=== PATIENT | male | born 1945 | race Caucasian/White ===

== ENCOUNTER 2017-03-30 09:38 | Inpatient (IN) | payer MEDICARE, BC ==
[~2017-03-30] VITALS: Ht 172.7 cm; Wt 60.8 kg
[2017-03-30] MEDS ORDERED: AZAT50TA7 PO (10:13)
[2017-03-30] MEDS ORDERED: INFL100V IV (10:13)
[2017-03-30] MEDS ORDERED: DIAZ10TA PO (10:13)
[2017-03-30] MEDS ORDERED: PIPERACILLIN /TAZOBACTAM 3.375 G in IV D5W 50 ML IV ONE (10:30)
[2017-03-30] MEDS ORDERED: IV NS 0.9% 1,000 ML BAG IV ONE ×2 (10:30→16:00)
[2017-03-30] MEDS ORDERED: ONDANSETRON HCL/PF 4 MG/2 ML VIAL ONE (10:44)
[2017-03-30] MEDS ORDERED: MORPHINE SULFATE INJ 4 MG/ML DISP.SYRIN ONE (10:45)
[2017-03-30 10:58] LABS: HEMATOCRIT 36 % (39-51); HEMOGLOBIN 12.3 g/dL (13.5-17.5); LYMPHOCYTES # (AUTO) 0.1 /CMM (0.8-4.8); MEAN CORPUSCULAR HEMOGLOBIN 30 PG (26.0-33.0); MEAN CORPUSCULAR HGB CONC 34 g/dl (31.0-36.0); MEAN CORPUSCULAR VOLUME 88 fL (80-96); PLATELET COUNT (AUTO) 136 /CMM (150-450); RDW COEFFICIENT OF VARIATION 13.8 (11.5-15.0); RED BLOOD CELL COUNT(AUTO) 4.16 MIL/uL (4.5-6.0)
[2017-03-30] MEDS ORDERED: ONDANSETRON HCL/PF - ER 4 MG/2 ML VIAL IV ONE (11:00)
[2017-03-30] MEDS ORDERED: MORPHINE SULFATE INJ 2 MG/ML DISP.SYRIN IV ONE (11:00)
[2017-03-30 11:07] LABS: CALCIUM, SERUM 8.9 mg/dL (8.5-10.1); CARBON DIOXIDE 23 mmol/L (21-32); CHLORIDE 102 mmol/L (98-107); GLUCOSE 146 mg/dL (74-106); SODIUM SERUM 137 mmol/L (136-145); UREA NITROGEN, BLOOD 27 mg/dL (7-18)
[2017-03-30 11:10] LABS: EOSINOPHILS % (AUTO) 0.4 % (0.0-6.0); LYMPHOCYTES % (AUTO) 1.3 % (20.0-44.0); MONOCYTES # (AUTO) 1.9 /CMM (0.1-1.30); MONOCYTES % (AUTO) 1.9 % (2.0-12.0); NEUTROPHILS # (AUTO) 7.5 /CMM (1.8-8.9); NEUTROPHILS % (AUTO) 96.4 % (43.0-81.0)
[2017-03-30 11:12] LABS: ALANINE AMINOTRANSFERASE 40 U/L (12-78); ALBUMIN 3.4 g/dL (3.4-5.0); ALKALINE PHOSPHATASE 137 U/L (46-116); ASPARTATE AMINOTRANSFERASE 55 U/L (15-37); TOTAL PROTEIN, SERUM 7.2 g/dL (6.4-8.2)
[2017-03-30 11:14] LABS: TROPONIN I < 0.017 ng/mL (0.00-0.056)
[2017-03-30 11:16] LABS: INR 1.13 (0.87-1.13); PROTHROMBIN TIME 11.9 SECS (9.5-12.7)
[2017-03-30 11:34] LABS: BILIRUBIN,DIRECT 0.3 mg/dL (0.0-0.2); BILIRUBIN,TOTAL 2.9 mg/dL (0.2-1.0)
[2017-03-30] MEDS ORDERED: COLE1TAB PO (12:14)
[2017-03-30] MEDS ORDERED: INFLIXIMAB IV SCH (16:00)
[2017-03-30] MEDS ORDERED: ONDANSETRON HCL/PF 4 MG/2 ML VIAL IVP PRN (16:00)
[2017-03-30] MEDS ORDERED: VANCOMYCIN 1 GM in IV D5W 250 ML IV ONE (16:00)
[2017-03-30] MEDS: IV NS 0.9% 1,000 ML IV PRN (16:16)
[2017-03-30] MEDS ORDERED: FEE PK DOSING 1 MIN EA MC ONE (16:30)
[2017-03-30 16:39] LABS: ALBUMIN 2.6 g/dL (3.4-5.0); BILIRUBIN,DIRECT 0.4 mg/dL (0.0-0.2); BILIRUBIN,TOTAL 2.7 mg/dL (0.2-1.0); TOTAL PROTEIN, SERUM 6.4 g/dL (6.4-8.2)
[2017-03-30] MEDS: MORPHINE SULFATE INJ 2 MG/ML DISP.SYRIN IV PRN (16:53)
[2017-03-30] MEDS ORDERED: VANCOMYCIN 0.75 GM in IV D5W 250 ML IV SCH (17:00)
[2017-03-30 17:02] LABS: IRON, SERUM 10 ug/dl (50-175); TOTAL IRON BINDING CAPACITY 278 ug/dl (250-450)
[2017-03-30] MEDS: MEROPENEM 1 G in IV NS 0.9% 100 ML IV SCH (17:14)
[2017-03-30] MEDS: VANCOMYCIN 0.75 GM in IV D5W 250 ML IV SCH (18:22)
[2017-03-30 20:00] VITALS: BP 124/85
[2017-03-30] MEDS: ACETAMINOPHEN 650 MG/20.3 ML UDC NG PRN (23:42)
[2017-03-31] VITALS: BP 130/70
[2017-03-31 04:00] VITALS: BP 94/54
[2017-03-31] MEDS: MEROPENEM 1 G in IV NS 0.9% 100 ML IV SCH ×2 (04:51→16:09)
[2017-03-31 06:47] LABS: EOSINOPHILS % (AUTO) 0.2 % (0.0-6.0); HEMATOCRIT 32 % (39-51); HEMOGLOBIN 10.7 g/dL (13.5-17.5); LYMPHOCYTES # (AUTO) 0.2 /CMM (0.8-4.8); LYMPHOCYTES % (AUTO) 1.3 % (20.0-44.0); MEAN CORPUSCULAR HEMOGLOBIN 30 PG (26.0-33.0); MEAN CORPUSCULAR HGB CONC 34 g/dl (31.0-36.0); MEAN CORPUSCULAR VOLUME 88 fL (80-96); MONOCYTES # (AUTO) 0.3 /CMM (0.1-1.30); MONOCYTES % (AUTO) 1.9 % (2.0-12.0); NEUTROPHILS # (AUTO) 17.7 /CMM (1.8-8.9); NEUTROPHILS % (AUTO) 96.6 % (43.0-81.0); PLATELET COUNT (AUTO) 119 /CMM (150-450); RDW COEFFICIENT OF VARIATION 14.1 (11.5-15.0); RED BLOOD CELL COUNT(AUTO) 3.61 MIL/uL (4.5-6.0); WHITE BLOOD COUNT (AUTO) 18.3 K/uL (4.3-11.0)
[2017-03-31 06:51] LABS: INR 1.52 (0.87-1.13); PROTHROMBIN TIME 16.7 SECS (9.5-12.7)
[2017-03-31 07:44] LABS: ALBUMIN 2.3 g/dL (3.4-5.0); BILIRUBIN,TOTAL 2.8 mg/dL (0.2-1.0); CALCIUM, SERUM 7.6 mg/dL (8.5-10.1); CREATININE 2.2 mg/dL (0.6-1.3); POTASSIUM 5.1 mmol/L (3.5-5.1); TOTAL PROTEIN, SERUM 6.3 g/dL (6.4-8.2)
[2017-03-31 07:47] LABS: CREATINE KINASE MB 1.9 ng/mL (0-3.6)
[2017-03-31 08:00] VITALS: BP 116/68
[2017-03-31] MEDS: PANTOPRAZOLE 40 MG TABLET.DR PO SCH (08:17)
[2017-03-31] MEDS: AZATHIOPRINE 50 MG TABLET PO SCH (08:17)
[2017-03-31 10:02] LABS: BAND % (MANUAL) 3 % (0.0-5.0); LYMPHOCYTES % (MANUAL) 10 % (16-48); MONOCYTES % (MANUAL) 1 % (0-11.0); NEUTROPHILS % (MANUAL) 86 (42-76)
[2017-03-31] MEDS: IV NS 0.9% 1,000 ML IV PRN (11:22)
[2017-03-31] MEDS: VANCOMYCIN 0.75 GM in IV D5W 250 ML IV SCH (11:23)
[2017-03-31 12:00] VITALS: BP 123/72
[2017-03-31 16:00] VITALS: BP 131/75
[2017-03-31 20:00] VITALS: BP 124/69
[2017-03-31 22:50] LABS: CREATININE, URINE 130.7 MG/DL (30.0-125.0); URINE TOTAL PROTEIN 159.5 mg/dL (0-11.9)
[2017-03-31 22:56] LABS: APPEARANCE,URINE SL CLOUDY (CLEAR); BILIRUBIN,URINE NEGATIVE (NEGATIVE); BLOOD, URINE 3+ Ery/uL (NEGATIVE); COLOR,URINE YELLOW (YELLOW); KETONES,URINE NEGATIVE (NEGATIVE); LEUKOCYTE ESTERASE ,URINE 1+ (NEGATIVE); NITRITE, URINE NEGATIVE (NEGATIVE); PROTEIN,URINE 2+ mg/dl (NEGATIVE); UGLUCOSE NEGATIVE (NEGATIVE); UROBILINOGEN,URINE 0.2 EU/dL (0.2)
[2017-03-31 23:08] LABS: BACTERIA,URINE 2+ /HPF (None Seen); SQUAMOUS EPITHELIAL CELL,UR Few /HPF (None Seen); URINE AMORPHOUS URATE Moderate /HPF (None Seen); WBC,URINE 21-50 /HPF (0-3)
[2017-04-01] VITALS: BP 96/54
[2017-04-01] MEDS: MORPHINE SULFATE INJ 2 MG/ML DISP.SYRIN IV PRN (03:11)
[2017-04-01] MEDS: IV NS 0.9% 1,000 ML IV PRN (03:56)
[2017-04-01 04:00] VITALS: BP 119/74
[2017-04-01] MEDS: MEROPENEM 1 G in IV NS 0.9% 100 ML IV SCH ×2 (04:34→16:13)
[2017-04-01] MEDS: VANCOMYCIN 0.75 GM in IV D5W 250 ML IV SCH (06:01)
[2017-04-01 08:00] VITALS: BP 121/73
[2017-04-01] MEDS: AZATHIOPRINE 50 MG TABLET PO SCH (08:01)
[2017-04-01] MEDS: PANTOPRAZOLE 40 MG TABLET.DR PO SCH (08:01)
[2017-04-01 08:43] LABS: CALCIUM, SERUM 7.1 mg/dL (8.5-10.1); CREATININE 1.5 mg/dL (0.6-1.3); POTASSIUM 3.3 mmol/L (3.5-5.1)
[2017-04-01] MEDS ORDERED: POTASSIUM CHLORIDE 20 MEQ TAB.PRT.SR PO SCH (11:30)
[2017-04-01 12:00] VITALS: BP 118/75
[2017-04-01] MEDS: DIAZEPAM 10 MG TABLET PO PRN (12:14)
[2017-04-01 16:00] VITALS: BP 141/71
[2017-04-01 17:31] LABS: BASOPHILS % (AUTO) 0.1 % (0.0-2.0); EOSINOPHILS % (AUTO) 0.2 % (0.0-6.0); HEMATOCRIT 28 % (39-51); HEMOGLOBIN 9.4 g/dL (13.5-17.5); LYMPHOCYTES # (AUTO) 0.5 /CMM (0.8-4.8); LYMPHOCYTES % (AUTO) 2.5 % (20.0-44.0); MEAN CORPUSCULAR HEMOGLOBIN 29 PG (26.0-33.0); MEAN CORPUSCULAR HGB CONC 33 g/dl (31.0-36.0); MEAN CORPUSCULAR VOLUME 87 fL (80-96); MONOCYTES # (AUTO) 0.8 /CMM (0.1-1.30); NEUTROPHILS # (AUTO) 18.5 /CMM (1.8-8.9); NEUTROPHILS % (AUTO) 93.2 % (43.0-81.0); PLATELET COUNT (AUTO) 134 /CMM (150-450); RDW COEFFICIENT OF VARIATION 14.1 (11.5-15.0); RED BLOOD CELL COUNT(AUTO) 3.26 MIL/uL (4.5-6.0); WHITE BLOOD COUNT (AUTO) 19.9 K/uL (4.3-11.0)
[2017-04-01 17:57] LABS: BAND % (MANUAL) 7 % (0.0-5.0); LYMPHOCYTES % (MANUAL) 3 % (16-48); MONOCYTES % (MANUAL) 2 % (0-11.0); NEUTROPHILS % (MANUAL) 88 (42-76)
[2017-04-01 20:15] VITALS: BP 120/67
[2017-04-02] VITALS (8 sets, daily range): BP systolic 104–135; BP diastolic 60–75
[2017-04-02] MEDS: VANCOMYCIN 0.75 GM in IV D5W 250 ML IV SCH ×2 (00:27→14:10)
[2017-04-02] MEDS: IV NS 0.9% 1,000 ML IV PRN (00:28)
[2017-04-02] MEDS: MEROPENEM 1 G in IV NS 0.9% 100 ML IV SCH ×2 (05:20→17:15)
[2017-04-02 07:16] LABS: EOSINOPHILS # (AUTO) 0.2 /CMM (0.0-0.7); EOSINOPHILS % (AUTO) 1.2 % (0.0-6.0); HEMATOCRIT 29 % (39-51); HEMOGLOBIN 9.7 g/dL (13.5-17.5); LYMPHOCYTES # (AUTO) 0.6 /CMM (0.8-4.8); LYMPHOCYTES % (AUTO) 3.3 % (20.0-44.0); MEAN CORPUSCULAR HEMOGLOBIN 30 PG (26.0-33.0); MEAN CORPUSCULAR HGB CONC 34 g/dl (31.0-36.0); MEAN CORPUSCULAR VOLUME 87 fL (80-96); MONOCYTES # (AUTO) 0.4 /CMM (0.1-1.30); MONOCYTES % (AUTO) 2.3 % (2.0-12.0); NEUTROPHILS # (AUTO) 16.3 /CMM (1.8-8.9); NEUTROPHILS % (AUTO) 93.2 % (43.0-81.0); PLATELET COUNT (AUTO) 137 /CMM (150-450); RDW COEFFICIENT OF VARIATION 14.3 (11.5-15.0); RED BLOOD CELL COUNT(AUTO) 3.28 MIL/uL (4.5-6.0); WHITE BLOOD COUNT (AUTO) 17.4 K/uL (4.3-11.0)
[2017-04-02 07:46] LABS: ALBUMIN 1.9 g/dL (3.4-5.0); BILIRUBIN,TOTAL 1.4 mg/dL (0.2-1.0); CALCIUM, SERUM 7.5 mg/dL (8.5-10.1); CREATININE 1.2 mg/dL (0.6-1.3); MAGNESIUM 1.6 mg/dL (1.8-2.4); PHOSPHORUS 1.5 mg/dL (2.5-4.9); POTASSIUM 3.2 mmol/L (3.5-5.1)
[2017-04-02] MEDS: AZATHIOPRINE 50 MG TABLET PO SCH (08:02)
[2017-04-02] MEDS: PANTOPRAZOLE 40 MG TABLET.DR PO SCH (08:02)
[2017-04-02 08:28] LABS: BAND % (MANUAL) 4 % (0.0-5.0); EOSINOPHILS % (MANUAL) 1 % (0-4); LYMPHOCYTES % (MANUAL) 5 % (16-48); MONOCYTES % (MANUAL) 3 % (0-11.0); NEUTROPHILS % (MANUAL) 87 (42-76)
[2017-04-02] MEDS ORDERED: POTASSIUM PHOSPHATE MM 15 MMOL in IV D5W 250 ML IV SCH (11:30)
[2017-04-02] MEDS ORDERED: Magnesium 1GM/D5W 100ML PREMIX 100 ML IV SCH (11:30)
[2017-04-02] MEDS: Magnesium 1GM/D5W 100ML PREMIX 100 ML IV SCH ×2 (11:36→13:01)
[2017-04-02] MEDS: POTASSIUM PHOSPHATE MM 7.5 MMOL in IV D5W 100 ML IV SCH ×2 (12:34→15:49)
[2017-04-02] MEDS: NEOMY SULF/BACITRAC ZN/POLY 15 GM TUBE TP SCH (14:53)
[2017-04-02 18:34] LABS: FREE PSA 3.39 ng/mL (0.00-45); PROSTATE SPECIFIC ANTIGEN SCR 40.76 ng/mL (0.00-4.00)
[2017-04-03] VITALS: BP 142/78
[2017-04-03] MEDS: VANCOMYCIN 0.75 GM in IV D5W 250 ML IV SCH ×2 (00:20→12:15)
[2017-04-03 04:00] VITALS: BP 126/71
[2017-04-03] MEDS: MEROPENEM 1 G in IV NS 0.9% 100 ML IV SCH ×2 (04:11→17:10)
[2017-04-03] MEDS: IV NS 0.9% 1,000 ML IV PRN (04:22)
[2017-04-03 07:36] LABS: BASOPHILS % (AUTO) 0.2 % (0.0-2.0); EOSINOPHILS # (AUTO) 0.5 /CMM (0.0-0.7); EOSINOPHILS % (AUTO) 4.5 % (0.0-6.0); HEMATOCRIT 27 % (39-51); HEMOGLOBIN 9.2 g/dL (13.5-17.5); LYMPHOCYTES # (AUTO) 0.8 /CMM (0.8-4.8); LYMPHOCYTES % (AUTO) 6.9 % (20.0-44.0); MEAN CORPUSCULAR HEMOGLOBIN 29 PG (26.0-33.0); MEAN CORPUSCULAR HGB CONC 34 g/dl (31.0-36.0); MEAN CORPUSCULAR VOLUME 86 fL (80-96); MONOCYTES # (AUTO) 0.6 /CMM (0.1-1.30); MONOCYTES % (AUTO) 5.3 % (2.0-12.0); NEUTROPHILS # (AUTO) 9.5 /CMM (1.8-8.9); NEUTROPHILS % (AUTO) 83.1 % (43.0-81.0); PLATELET COUNT (AUTO) 151 /CMM (150-450); RED BLOOD CELL COUNT(AUTO) 3.15 MIL/uL (4.5-6.0); WHITE BLOOD COUNT (AUTO) 11.5 K/uL (4.3-11.0)
[2017-04-03 07:55] LABS: CALCIUM, SERUM 7.1 mg/dL (8.5-10.1); CREATININE 1.1 mg/dL (0.6-1.3); PHOSPHORUS 1.6 mg/dL (2.5-4.9); POTASSIUM 3.1 mmol/L (3.5-5.1)
[2017-04-03 08:00] VITALS: BP 143/92
[2017-04-03] MEDS: PANTOPRAZOLE 40 MG TABLET.DR PO SCH (08:14)
[2017-04-03] MEDS: AZATHIOPRINE 50 MG TABLET PO SCH (08:16)
[2017-04-03] MEDS: NEOMY SULF/BACITRAC ZN/POLY 15 GM TUBE TP SCH (08:19)
[2017-04-03] MEDS ORDERED: Potassium Chloride 10 MEQ, LIDOCAINE HCL/PF 1% 1 ML in IV D5W 50 ML IV SCH ×6 (10:00)
[2017-04-03] MEDS ORDERED: POTASSIUM PHOSPHATE MM 15 MMOL in IV D5W 250 ML IV SCH (10:00)
[2017-04-03] MEDS: Magnesium 1GM/D5W 100ML PREMIX 100 ML IV SCH ×2 (10:20→11:49)
[2017-04-03] MEDS: Potassium Chloride 10 MEQ, LIDOCAINE HCL/PF 1% 1 ML in IV D5W 50 ML IV SCH ×2 (10:49→13:17)
[2017-04-03 12:00] VITALS: BP 119/71
[2017-04-03] MEDS: POTASSIUM PHOSPHATE MM 7.5 MMOL in IV D5W 100 ML IV SCH ×2 (15:51→17:21)
[2017-04-03 16:00] VITALS: BP 121/73
[2017-04-03] MEDS: FINASTERIDE (5 MG) 5 MG TABLET PO SCH (17:57)
[2017-04-03 20:00] VITALS: BP 130/69
[2017-04-03] MEDS: VANCOMYCIN 1 GM in IV D5W 250 ML IV SCH (23:48)
[2017-04-04] VITALS (7 sets, daily range): BP systolic 126–149; BP diastolic 68–83
[2017-04-04] MEDS ORDERED: MEROPENEM 1 G VIAL IV ONE (04:55)
[2017-04-04] MEDS: MEROPENEM 1 G in IV NS 0.9% 100 ML IV SCH ×2 (05:03→18:07)
[2017-04-04 06:54] LABS: BASOPHILS % (AUTO) 0.2 % (0.0-2.0); EOSINOPHILS # (AUTO) 0.5 /CMM (0.0-0.7); EOSINOPHILS % (AUTO) 5.1 % (0.0-6.0); HEMATOCRIT 31 % (39-51); HEMOGLOBIN 10.1 g/dL (13.5-17.5); LYMPHOCYTES # (AUTO) 1.4 /CMM (0.8-4.8); LYMPHOCYTES % (AUTO) 14.7 % (20.0-44.0); MEAN CORPUSCULAR HEMOGLOBIN 29 PG (26.0-33.0); MEAN CORPUSCULAR HGB CONC 33 g/dl (31.0-36.0); MEAN CORPUSCULAR VOLUME 87 fL (80-96); MONOCYTES # (AUTO) 0.4 /CMM (0.1-1.30); MONOCYTES % (AUTO) 4.6 % (2.0-12.0); NEUTROPHILS # (AUTO) 7.1 /CMM (1.8-8.9); NEUTROPHILS % (AUTO) 75.4 % (43.0-81.0); PLATELET COUNT (AUTO) 210 /CMM (150-450); RDW COEFFICIENT OF VARIATION 14.3 (11.5-15.0); WHITE BLOOD COUNT (AUTO) 9.4 K/uL (4.3-11.0)
[2017-04-04 07:07] LABS: INR 2.78 (0.87-1.13); PROTHROMBIN TIME 31.7 SECS (9.5-12.7)
[2017-04-04 07:24] LABS: CALCIUM, SERUM 7.7 mg/dL (8.5-10.1); PHOSPHORUS 2.2 mg/dL (2.5-4.9); POTASSIUM 3.3 mmol/L (3.5-5.1)
[2017-04-04] MEDS: FINASTERIDE (5 MG) 5 MG TABLET PO SCH (08:32)
[2017-04-04] MEDS: PANTOPRAZOLE 40 MG TABLET.DR PO SCH (08:33)
[2017-04-04] MEDS: AZATHIOPRINE 50 MG TABLET PO SCH (08:34)
[2017-04-04] MEDS: NEOMY SULF/BACITRAC ZN/POLY 15 GM TUBE TP SCH (08:36)
[2017-04-04] MEDS: DIAZEPAM 10 MG TABLET PO PRN (10:02)
[2017-04-04] MEDS: POTASSIUM CL. PREMIX PERIPHER. 50 ML IV SCH ×2 (11:28→13:56)
[2017-04-04] MEDS: IV NS 0.9% 1,000 ML IV PRN (11:33)
[2017-04-04] MEDS: VANCOMYCIN 1 GM in IV D5W 250 ML IV SCH ×2 (12:46→23:58)
[2017-04-04] MEDS: POTASSIUM PHOSPHATE MM 7.5 MMOL in IV D5W 100 ML IV SCH ×2 (15:00→19:32)
[2017-04-05] VITALS (10 sets, daily range): BP systolic 126–152; BP diastolic 70–92
[2017-04-05] MEDS: MEROPENEM 1 G in IV NS 0.9% 100 ML IV SCH ×2 (04:46→18:05)
[2017-04-05] MEDS: IV NS 0.9% 1,000 ML IV PRN ×2 (05:06→22:16)
[2017-04-05] MEDS: PANTOPRAZOLE 40 MG TABLET.DR PO SCH (07:30)
[2017-04-05 08:13] LABS: BASOPHILS # (AUTO) 0.1 /CMM (0.0-0.2); BASOPHILS % (AUTO) 0.7 % (0.0-2.0); EOSINOPHILS # (AUTO) 0.5 /CMM (0.0-0.7); EOSINOPHILS % (AUTO) 3.6 % (0.0-6.0); HEMATOCRIT 34 % (39-51); HEMOGLOBIN 11.2 g/dL (13.5-17.5); LYMPHOCYTES # (AUTO) 2.1 /CMM (0.8-4.8); LYMPHOCYTES % (AUTO) 15.4 % (20.0-44.0); MEAN CORPUSCULAR HEMOGLOBIN 29 PG (26.0-33.0); MEAN CORPUSCULAR HGB CONC 33 g/dl (31.0-36.0); MEAN CORPUSCULAR VOLUME 87 fL (80-96); MONOCYTES # (AUTO) 0.2 /CMM (0.1-1.30); MONOCYTES % (AUTO) 1.6 % (2.0-12.0); NEUTROPHILS # (AUTO) 10.7 /CMM (1.8-8.9); NEUTROPHILS % (AUTO) 78.7 % (43.0-81.0); PLATELET COUNT (AUTO) 295 /CMM (150-450); RDW COEFFICIENT OF VARIATION 14.1 (11.5-15.0); RED BLOOD CELL COUNT(AUTO) 3.93 MIL/uL (4.5-6.0); WHITE BLOOD COUNT (AUTO) 13.5 K/uL (4.3-11.0)
[2017-04-05 08:27] LABS: CREATININE 1.1 mg/dL (0.6-1.3); MAGNESIUM 1.9 mg/dL (1.8-2.4); PHOSPHORUS 2.3 mg/dL (2.5-4.9); POTASSIUM 3.3 mmol/L (3.5-5.1)
[2017-04-05] MEDS: AZATHIOPRINE 50 MG TABLET PO SCH ×2 (08:29→10:11)
[2017-04-05] MEDS: FINASTERIDE (5 MG) 5 MG TABLET PO SCH ×2 (08:29→10:12)
[2017-04-05] MEDS: NEOMY SULF/BACITRAC ZN/POLY 15 GM TUBE TP SCH ×2 (08:30→10:13)
[2017-04-05] MEDS ORDERED: LIDOCAINE 0.5% HCL 50 ML VIAL ONE (09:07)
[2017-04-05] MEDS ORDERED: BUPIVACAINE MPF 0.5% W/EPI INJ 30 ML VIAL ONE (09:07)
[2017-04-05 09:13] LABS: INR 3.52 (0.87-1.13); PROTHROMBIN TIME 40.8 SECS (9.5-12.7)
[2017-04-05] MEDS: ACETAMINOPHEN 650 MG/20.3 ML UDC NG PRN (11:14)
[2017-04-05] MEDS: VANCOMYCIN 1 GM in IV D5W 250 ML IV SCH (11:50)
[2017-04-05] MEDS ORDERED: PHYTONADIONE INJ 10 MG/1 ML AMPUL SQ ONE (14:30)
[2017-04-05] MEDS: POTASSIUM CL. PREMIX PERIPHER. 50 ML IV SCH ×2 (14:53→16:21)
[2017-04-05 15:32] LABS: PLATELET COUNT (AUTO) 288 /CMM (150-450)
[2017-04-05] MEDS ORDERED: K PHOS NEUTRAL 250 MG TABLET PO ONE (16:00)
[2017-04-05 16:09] LABS: PROTHROMBIN TIME 47.2 SECS (9.5-12.7)
[2017-04-05 16:13] LABS: D-DIMER 2.35 mg/L(FEU (0.17-0.50); FIBRINOGEN ACTIVITY 583 Mg/dL (213-485); INR 4.04 (0.87-1.13); PARTIAL THROMBOPLASTIN TIME 49 SEC (23-34)
[2017-04-06] VITALS (7 sets, daily range): BP systolic 124–151; BP diastolic 72–90
[2017-04-06] MEDS: VANCOMYCIN 1 GM in IV D5W 250 ML IV SCH ×2 (01:01→11:34)
[2017-04-06] MEDS ORDERED: diphenhydrAMINE HCL 50 MG/ML VIAL ONE (01:14)
[2017-04-06] MEDS ORDERED: diphenhydrAMINE HCL 50 MG/ML VIAL IV ONE (01:30)
[2017-04-06] MEDS: MEROPENEM 1 G in IV NS 0.9% 100 ML IV SCH (04:34)
[2017-04-06 06:51] LABS: INR 1.11 (0.87-1.13); PROTHROMBIN TIME 11.9 SECS (9.5-12.7)
[2017-04-06 06:52] LABS: CALCIUM, SERUM 7.8 mg/dL (8.5-10.1); CREATININE 1.1 mg/dL (0.6-1.3); PHOSPHORUS 3.1 mg/dL (2.5-4.9); POTASSIUM 3.2 mmol/L (3.5-5.1)
[2017-04-06] MEDS: AZATHIOPRINE 50 MG TABLET PO SCH (08:00)
[2017-04-06] MEDS: PANTOPRAZOLE 40 MG TABLET.DR PO SCH (08:01)
[2017-04-06] MEDS: FINASTERIDE (5 MG) 5 MG TABLET PO SCH (08:01)
[2017-04-06] MEDS: NEOMY SULF/BACITRAC ZN/POLY 15 GM TUBE TP SCH (08:04)
[2017-04-06] MEDS ORDERED: POTASSIUM CHLORIDE 20 MEQ TAB.PRT.SR PO SCH (11:00)
[2017-04-06] MEDS ORDERED: ERTA1VIA2 IV (11:18)
[2017-04-06] MEDS ORDERED: VANC1PLA10 IV (11:18)
[2017-04-06] MEDS ORDERED: Potassium Chloride 10 MEQ, LIDOCAINE HCL/PF 1% 1 ML in IV D5W 50 ML IV SCH ×6 (11:30)
[2017-04-06] MEDS: MORPHINE SULFATE INJ 2 MG/ML DISP.SYRIN IV PRN (11:43)
== END 2017-04-06 15:32 | disposition home health service (06) | DRG 871 ==
LOC: ER 09:40 → MEDSG1 13:29 → TELE1 16:36 → MEDSG1 04-06 11:17
PROVIDERS: ADMIT Internal Medicine; ATTEND Internal Medicine
PROC: 05H633Z Insertion of Infusion Device into Left Subclavian Vein, Percutaneous Approach (ICD-10-PCS; principal; 2017-03-30)
PROC: 30233K1 Transfusion of Nonautologous Frozen Plasma into Peripheral Vein, Percutaneous Approach (ICD-10-PCS; 2017-03-30)
DX: A41.9 Sepsis, unspecified organism (principal); N17.0 Acute kidney failure with tubular necrosis; E87.2 Acidosis; E44.0 Moderate protein-calorie malnutrition; D68.9 Coagulation defect, unspecified; E87.8 Other disorders of electrolyte and fluid balance, not elsewhere classified; K50.90 Crohn's disease, unspecified, without complications; K56.7 Ileus, unspecified; L03.113 Cellulitis of right upper limb; N39.0 Urinary tract infection, site not specified; Z82.49 Family history of ischemic heart disease and other diseases of the circulatory system; D50.9 Iron deficiency anemia, unspecified; K80.20 Calculus of gallbladder without cholecystitis without obstruction; N18.9 Chronic kidney disease, unspecified; B96.89 Other specified bacterial agents as the cause of diseases classified elsewhere
CPT/HCPCS: 36415; 71010-TC; 71250-TC; 76770-TC; 80048-TC; 80053-TC; 80076-TC; 80202-TC; 81000-TC; 82553-TC; 82570-TC; 83540-TC; 83605-TC; 83735-TC; 84100-TC; 84153-TC; 84154-TC; 84155-TC; 84300-TC; 84484-TC; 85025-TC; 85396; 85610-TC; 85730-TC; 86850-TC; 87040-TC; 87081-TC; 87086-TC; 93307-TC; 93971-TC; A4606; A6402; A6403; J1200; J2185; J2270; J2405; J2543; J3370; J3430; J3475; J3480; J3490; J7030; J7050; J7060; J7500; P9017-BL; Z7610

== ENCOUNTER 2017-04-08 13:41 | Outpatient (CLI) | payer MEDICARE, BC ==
[~2017-04-08 13:41] MED LIST: AZAT50TA7 PO; COLE1TAB PO; DIAZ10TA PO; ERTA1VIA2 IV; INFL100V IV; VANC1PLA10 IV
== END 2017-04-08 23:59 | disposition home health service (06) ==
LOC: WOU 13:41
PROVIDERS: ATTEND Surgery
DX: I96 Gangrene, not elsewhere classified (principal); S51.801A Unspecified open wound of right forearm, initial encounter; L03.113 Cellulitis of right upper limb; X58.XXXA Exposure to other specified factors, initial encounter; Y92.89 Other specified places as the place of occurrence of the external cause; K50.90 Crohn's disease, unspecified, without complications; Z79.899 Other long term (current) drug therapy
CPT/HCPCS: 11043; 11046; A6402

== ENCOUNTER 2017-04-12 12:35 | Outpatient (CLI) | payer MEDICARE, BC ==
[~2017-04-12 12:35] MED LIST changes: +PIPERACILLIN /TAZOBACTAM 3.375 G VIAL IV ONE
== END 2017-04-12 23:59 | disposition home health service (06) ==
LOC: WOU 12:35
PROVIDERS: ATTEND Surgery
DX: S51.811A Laceration without foreign body of right forearm, initial encounter (principal); L03.113 Cellulitis of right upper limb; K50.00 Crohn's disease of small intestine without complications; D84.9 Immunodeficiency, unspecified; Z79.899 Other long term (current) drug therapy
CPT/HCPCS: 11042; 11045; A6253; A6402; J2543

== ENCOUNTER 2017-04-14 20:56 | Emergency (ER) | payer MEDICARE, BC ==
[~2017-04-14] VITALS: Ht 172.7 cm; Wt 66.7 kg
[~2017-04-14 20:56] MED LIST changes: -PIPERACILLIN /TAZOBACTAM 3.375 G VIAL IV ONE
[2017-04-14 21:08] VITALS: BP 132/78
--- NOTE | 2017-04-14 21:51 | NUR ---
PAC ABNER ORDERED REPLACE FC LEG BAG COMPLITED, TOLERATED WELL
--- NOTE | 2017-04-14 21:56 | NUR ---
PT LEFT WITHOUT D/C INSTRUCTIONS. AWARE. PT HAS F/C INTACT WITH NEW LEG BAG. PT STABLE.
== END 2017-04-14 22:03 | disposition left against medical advice (07) ==
LOC: ER 20:57
DX: T83.011A Breakdown (mechanical) of indwelling urethral catheter, initial encounter (principal)
CPT/HCPCS: 99284; A4606; Z7610

== ENCOUNTER 2017-04-19 12:56 | Outpatient (CLI) | payer MEDICARE, BC | END 2017-04-19 23:59 | disposition home health service (06) | LOC: WOU 12:56 | PROVIDERS: ATTEND Surgery | DX: S51.801A Unspecified open wound of right forearm, initial encounter (principal); L03.113 Cellulitis of right upper limb; X58.XXXA Exposure to other specified factors, initial encounter; K50.00 Crohn's disease of small intestine without complications; D84.9 Immunodeficiency, unspecified; Z79.899 Other long term (current) drug therapy | CPT/HCPCS: 11042; 11045; A6253; A6402 ==

== ENCOUNTER 2017-04-29 13:22 | Outpatient (CLI) | payer MEDICARE, BC | END 2017-04-29 23:59 | disposition home health service (06) | LOC: WOU 13:22 | PROVIDERS: ATTEND Surgery | DX: S51.801A Unspecified open wound of right forearm, initial encounter (principal); L03.113 Cellulitis of right upper limb; X58.XXXS Exposure to other specified factors, sequela; K50.00 Crohn's disease of small intestine without complications; D84.9 Immunodeficiency, unspecified; Z79.899 Other long term (current) drug therapy; Z83.3 Family history of diabetes mellitus | CPT/HCPCS: 11042; 11045; A6253; A6402 ==

== ENCOUNTER 2017-05-06 13:40 | Outpatient (CLI) | payer MEDICARE, BC | END 2017-05-06 23:59 | disposition home health service (06) | LOC: WOU 13:40 | PROVIDERS: ATTEND Surgery | DX: S51.801A Unspecified open wound of right forearm, initial encounter (principal); I96 Gangrene, not elsewhere classified; K50.00 Crohn's disease of small intestine without complications; D84.9 Immunodeficiency, unspecified; Z79.899 Other long term (current) drug therapy; Z83.3 Family history of diabetes mellitus | CPT/HCPCS: 11042; 11045; A6402 ==

== ENCOUNTER 2017-05-20 13:15 | Outpatient (CLI) | payer MEDICARE, BC | END 2017-05-20 23:59 | disposition home or self-care (01) | LOC: WOU 13:15 | PROVIDERS: ATTEND Surgery | DX: Z48.817 Encounter for surgical aftercare following surgery on the skin and subcutaneous tissue (principal); I96 Gangrene, not elsewhere classified; K50.90 Crohn's disease, unspecified, without complications; Z79.899 Other long term (current) drug therapy | CPT/HCPCS: 11042; 11045; A6402 ==

== ENCOUNTER 2017-05-31 14:02 | Outpatient (CLI) | payer MEDICARE, BC | END 2017-05-31 23:59 | disposition home health service (06) | LOC: WOU 14:02 | PROVIDERS: ATTEND Surgery | DX: Z09 Encounter for follow-up examination after completed treatment for conditions other than malignant neoplasm (principal); K50.90 Crohn's disease, unspecified, without complications; Z79.899 Other long term (current) drug therapy | CPT/HCPCS: G0463 ==

== ENCOUNTER 2017-07-12 13:02 | Outpatient (CLI) | payer MEDICARE, BC | END 2017-07-12 23:59 | disposition home or self-care (01) | LOC: WOU 13:02 | PROVIDERS: ATTEND Surgery | DX: L90.5 Scar conditions and fibrosis of skin (principal); K50.90 Crohn's disease, unspecified, without complications; Z79.899 Other long term (current) drug therapy | CPT/HCPCS: G0463 ==

== ENCOUNTER 2017-09-06 10:32 | Outpatient (CLI) | payer MEDICARE, BC ==
[~2017-09-06 10:32] MED LIST changes: +AZAT50TA18 PO; -AZAT50TA7 PO
== END 2017-09-06 23:59 | disposition home or self-care (01) ==
LOC: WOU 10:32
PROVIDERS: ATTEND Surgery
DX: L90.5 Scar conditions and fibrosis of skin (principal); S51.811S Laceration without foreign body of right forearm, sequela; X58.XXXS Exposure to other specified factors, sequela; L85.3 Xerosis cutis; R23.4 Changes in skin texture; Z79.899 Other long term (current) drug therapy
CPT/HCPCS: G0463

== ENCOUNTER 2017-11-08 12:30 | Outpatient (CLI) | payer MEDICARE, BC | END 2017-11-08 23:59 | disposition home or self-care (01) | LOC: WOU 12:30 | PROVIDERS: ATTEND Surgery | DX: Z09 Encounter for follow-up examination after completed treatment for conditions other than malignant neoplasm (principal); L90.5 Scar conditions and fibrosis of skin; R23.4 Changes in skin texture; L85.3 Xerosis cutis; K50.90 Crohn's disease, unspecified, without complications; Z79.899 Other long term (current) drug therapy | CPT/HCPCS: G0463 ==

== ENCOUNTER 2019-08-17 12:00 | Outpatient (CLI) | payer MEDICARE, BC | END 2019-08-17 23:59 | disposition home or self-care (01) | LOC: WOU 12:00 | PROVIDERS: ATTEND Surgery | DX: C43.39 Malignant melanoma of other parts of face (principal); K50.90 Crohn's disease, unspecified, without complications; Z79.899 Other long term (current) drug therapy; Z83.3 Family history of diabetes mellitus | CPT/HCPCS: G0463 ==

== ENCOUNTER 2019-08-22 09:43 | Outpatient (CLI) | payer MEDICARE, BC ==
[2019-08-22 10:59] LABS: BASOPHILS # (AUTO) 0.1 /CMM (0.0-0.2); BASOPHILS % (AUTO) 0.9 % (0.0-2.0); EOSINOPHILS % (AUTO) 1.1 % (0.0-6.0); HEMATOCRIT 35 % (39-51); HEMOGLOBIN 11.6 g/dL (13.5-17.5); LYMPHOCYTES % (AUTO) 18.3 % (20.0-44.0); MEAN CORPUSCULAR HGB CONC 33 g/dl (31.0-36.0); MEAN CORPUSCULAR VOLUME 93 fL (80-96); MONOCYTES # (AUTO) 0.4 /CMM (0.1-1.30); MONOCYTES % (AUTO) 7.4 % (2.0-12.0); NEUTROPHILS % (AUTO) 72.3 % (43.0-81.0); PLATELET COUNT (AUTO) 148 /CMM (150-450); RED BLOOD CELL COUNT(AUTO) 3.75 MIL/uL (4.5-6.0); WHITE BLOOD COUNT (AUTO) 5.5 K/uL (4.3-11.0)
[2019-08-22 11:03] LABS: CALCIUM, SERUM 8.7 mg/dL (8.5-10.1); CREATININE 1.1 mg/dL (0.6-1.3); POTASSIUM 4.4 mmol/L (3.5-5.1)
== END 2019-08-22 23:59 | disposition home or self-care (01) ==
LOC: LAB 09:43
PROVIDERS: ATTEND Surgery
DX: Z01.818 Encounter for other preprocedural examination (principal); C43.39 Malignant melanoma of other parts of face; K50.90 Crohn's disease, unspecified, without complications
CPT/HCPCS: 36415; 71045-TC; 80048-TC; 85025-TC; 85610-TC; 85730-TC

== ENCOUNTER 2019-09-04 06:49 | Day surgery (SDC) | payer MEDICARE, BC ==
[2019-09-04] MEDS ORDERED: ANESTHESIA TRAY IN PYXIS 1 EA TRAY MC ONE (07:21)
[2019-09-04] MEDS ORDERED: LIDOCAINE MPF 1%-EPI 1:200,000 30 ML VIAL IJ ONE (07:22)
[2019-09-04] MEDS ORDERED: BUPIVACAINE 0.5 % PF 150 MG/30 ML VIAL ONE (08:12)
[2019-09-04] MEDS ORDERED: BACITRACIN ZINC OINT (15 GM) 15 GM TUBE TP ONE (08:33)
[2019-09-04] MEDS ORDERED: HYDROMORPHONE 1 MG/1 ML DISP.SYRIN ONE (09:10)
== END 2019-09-04 11:40 | disposition home or self-care (01) ==
LOC: DS 06:49
PROVIDERS: ATTEND Surgery
DX: D23.39 Other benign neoplasm of skin of other parts of face (principal); Z88.2 Allergy status to sulfonamides; D64.9 Anemia, unspecified; F41.9 Anxiety disorder, unspecified; M19.90 Unspecified osteoarthritis, unspecified site; N18.3 Chronic kidney disease, stage 3 (moderate); L57.0 Actinic keratosis; Z79.899 Other long term (current) drug therapy
CPT/HCPCS: 11441; 15733; 88305; J0690; J2405; J2704; J3490 ×3; J1170

== ENCOUNTER 2019-09-14 12:10 | Outpatient (CLI) | payer MEDICARE, BC | END 2019-09-14 23:59 | disposition home health service (06) | LOC: WOU 12:10 | PROVIDERS: ATTEND Surgery | DX: Z48.3 Aftercare following surgery for neoplasm (principal); C43.39 Malignant melanoma of other parts of face | CPT/HCPCS: G0463 ==

== ENCOUNTER 2019-09-28 11:50 | Outpatient (CLI) | payer MEDICARE, BC | END 2019-09-28 23:59 | disposition home or self-care (01) | LOC: WOU 11:50 | PROVIDERS: ATTEND Surgery | DX: Z48.3 Aftercare following surgery for neoplasm (principal); C76.0 Malignant neoplasm of head, face and neck; K50.90 Crohn's disease, unspecified, without complications; Z79.899 Other long term (current) drug therapy; Z87.891 Personal history of nicotine dependence | CPT/HCPCS: G0463 ==

== ENCOUNTER 2020-10-01 10:44 | Emergency (ER) | payer BC, MEDICARE, OTHER ==
[~2020-10-01] VITALS: Ht 172.7 cm; Wt 63.0 kg
--- NOTE | 2020-10-01 10:44 | NUR ---
PT BIB SELF C/O WORSENING FACIAL SPASM FOR 2 WEEKS. PT IS AAOX4, NOT IN RESPIRATORY DISTRESS, HOOKED TO [employer], KEPT RESTED AND COMFORTABLE. WILL CONTINUE TO MONITOR.
--- NOTE | 2020-10-01 11:30 | NUR ---
AT BEDSIDE FOR EVAL.
[2020-10-01] MEDS ORDERED: KETOROLAC TROMETHAMINE 15 MG/ML VIAL ONE (11:48)
[2020-10-01] MEDS ORDERED: LORAZEPAM 0.5 MG TABLET ONE (11:48)
[2020-10-01] MEDS ORDERED: KETOROLAC TROMETHAMINE INJ 30 MG/ML VIAL IM ONE (12:00)
[2020-10-01] MEDS ORDERED: LORAZEPAM 0.5 MG TABLET PO ONE (12:00)
--- NOTE | 2020-10-01 12:02 | NUR ---
Patient discharged to home in stable condition. Written and verbal after care instructions given. Patient verbalizes understanding of instruction.
[2020-10-01 12:03] VITALS: BP 143/88
== END 2020-10-01 12:04 | disposition home or self-care (01) ==
LOC: ER 10:49
DX: F41.9 Anxiety disorder, unspecified (principal); G51.33 Clonic hemifacial spasm, bilateral; Z79.899 Other long term (current) drug therapy
CPT/HCPCS: 96372; 99283; J1885

== ENCOUNTER 2021-06-25 09:27 | Emergency (ER) | payer MEDICARE, OTHER ==
[~2021-06-25] VITALS: Ht 172.7 cm; Wt 63.5 kg
--- NOTE | 2021-06-25 09:42 | NUR ---
BIB SELF C/O NECK SPASM FOR 1 MONTH. RATES PAIN 3/10. NO APPARENT DEFORMITY NOTED. WILL CONTINUE TO MONITOR THE PATIENT
[2021-06-25] MEDS ORDERED: METH-647 PO (10:09)
[2021-06-25 10:33] VITALS: BP 132/84
--- NOTE | 2021-06-25 10:33 | NUR ---
Patient discharged to home in stable condition. Written and verbal after care instructions given. Patient verbalizes understanding of instruction.
--- NOTE | 2021-06-25 10:34 | NUR ---
UNABLE TO DEPART THE PATIENT FROM [facility]
== END 2021-06-25 11:00 | disposition home or self-care (01) ==
LOC: ER 10:43
DX: M62.838 Other muscle spasm (principal); F41.9 Anxiety disorder, unspecified; Z88.2 Allergy status to sulfonamides; Z79.899 Other long term (current) drug therapy

== ENCOUNTER 2021-07-10 01:53 | Emergency (ER) | payer OTHER ==
[~2021-07-10] VITALS: Ht 172.7 cm; Wt 64.0 kg
[~2021-07-10 01:53] MED LIST changes: +METH-647 PO
[2021-07-10 02:03] VITALS: BP 155/94
[2021-07-10] MEDS ORDERED: LORA-259 PO (05:15)
== END 2021-07-10 02:15 | disposition home or self-care (01) ==
LOC: ER 01:56
DX: F41.9 Anxiety disorder, unspecified (principal); Z88.2 Allergy status to sulfonamides; Z79.899 Other long term (current) drug therapy

== ENCOUNTER 2021-07-24 18:23 | Emergency (ER) | payer OTHER ==
[~2021-07-24] VITALS: Ht 172.7 cm; Wt 63.5 kg
[~2021-07-24 18:23] MED LIST changes: +LORA-259 PO
[2021-07-24 18:29] VITALS: BP 153/87
--- NOTE | 2021-07-24 19:55 | NUR ---
Patient eloped from facility. ER MD notified.
== END 2021-07-24 21:05 | disposition home or self-care (01) ==
LOC: ER 18:29
DX: Z53.21 Procedure and treatment not carried out due to patient leaving prior to being seen by health care provider (principal); Z76.0 Encounter for issue of repeat prescription; F41.9 Anxiety disorder, unspecified

== ENCOUNTER 2021-07-28 11:42 | Emergency (ER) | payer OTHER ==
[~2021-07-28] VITALS: Ht 172.7 cm; Wt 62.6 kg
[2021-07-28 11:48] VITALS: BP 154/98
--- NOTE | 2021-07-28 11:50 | NUR ---
DR NAVARRETE AT BEDSIDE
[2021-07-28] MEDS ORDERED: LORA-259 PO (11:54)
[2021-07-28] MEDS ORDERED: LORAZEPAM 0.5 MG TABLET ONE (11:55)
[2021-07-28] MEDS ORDERED: LORAZEPAM 0.5 MG TABLET PO ONE (12:00)
--- NOTE | 2021-07-28 12:00 | NUR ---
Patient discharged to home in stable condition. Written and verbal after care instructions given. Patient verbalizes understanding of instruction.
== END 2021-07-28 12:05 | disposition home or self-care (01) ==
LOC: ER 11:45
DX: F41.9 Anxiety disorder, unspecified (principal); Z88.2 Allergy status to sulfonamides; Z79.899 Other long term (current) drug therapy

== ENCOUNTER 2021-08-27 09:31 | Emergency (ER) | payer OTHER ==
[~2021-08-27] VITALS: Ht 170.2 cm; Wt 74.8 kg
--- NOTE | 2021-08-27 09:31 | NUR ---
BIBS C/O TENSION IN THE HEAD X1YR ON AND OFF, "I USE ATIVAN BUT I RAN OUT." PT BLOOD PRESSURE IS ELEVATED, MD AWARE. BREATHING IS EVEN AND UNLABORED.
[2021-08-27 09:57] VITALS: BP 154/95
[2021-08-27] MEDS ORDERED: LORA-259 PO ×2 (10:16→10:18)
--- NOTE | 2021-08-27 10:25 | NUR ---
Patient discharged to home in stable condition. Written and verbal after care instructions given. Patient verbalizes understanding of instruction.
[2021-08-27] MEDS ORDERED: LORAZEPAM 0.5 MG TABLET PO ONE (10:30)
== END 2021-08-27 10:26 | disposition home or self-care (01) ==
LOC: ER 09:35
DX: G44.201 Tension-type headache, unspecified, intractable (principal); F41.9 Anxiety disorder, unspecified; K50.90 Crohn's disease, unspecified, without complications; N30.10 Interstitial cystitis (chronic) without hematuria; Z88.2 Allergy status to sulfonamides; Z79.52 Long term (current) use of systemic steroids; Z79.891 Long term (current) use of opiate analgesic; Z79.2 Long term (current) use of antibiotics

== ENCOUNTER 2022-07-10 10:43 | Emergency (ER) | payer OTHER ==
[~2022-07-10] VITALS: Ht 172.7 cm; Wt 64.9 kg
--- NOTE | 2022-07-10 11:05 | NUR ---
ASSUME PT CARE. RESTING IN BED C/O L FLANK PAIN R/T GROIN AREA FOR AT LEAST 24 HOURS NOW. PT STATES HAD HX OF KIDNEY STONE. GOWNED AND PLACED ON MONITOR. VSS. AWAITING MD FERRER.
--- NOTE | 2022-07-10 11:10 | NUR ---
DR RICE AT BEDSIDE FOR EVAL.
--- NOTE | 2022-07-10 11:17 | NUR ---
PT TO RADIOLOGY FOR CT ABDOMEN VIA [facility].
[2022-07-10] MEDS ORDERED: KETOROLAC TROMETHAMINE 15 MG/ML VIAL ONE ×2 (11:26→11:59)
[2022-07-10 11:28] LABS: BASOPHILS # (AUTO) 0.1 K/uL (0.0-0.2); BASOPHILS % (AUTO) 0.7 % (0.0-2.0); EOSINOPHILS % (AUTO) 0.9 % (0.0-6.0); HEMATOCRIT 34 % (39-51); LYMPHOCYTES % (AUTO) 11.6 % (20.0-44.0); MEAN CORPUSCULAR HGB CONC 33 g/dl (31.0-36.0); MEAN CORPUSCULAR VOLUME 90 fL (80-96); MONOCYTES # (AUTO) 0.4 K/uL (0.1-1.30); MONOCYTES % (AUTO) 4.4 % (2.0-12.0); NEUTROPHILS # (AUTO) 7.1 K/uL (1.8-8.9); NEUTROPHILS % (AUTO) 82.4 % (43.0-81.0); PLATELET COUNT (AUTO) 178 K/uL (150-450); WHITE BLOOD COUNT (AUTO) 8.6 K/uL (4.3-11.0)
[2022-07-10] MEDS ORDERED: IV NS 0.9% 1,000 ML BAG IV ONE (11:30)
[2022-07-10] MEDS ORDERED: KETOROLAC TROMETHAMINE INJ 30 MG/ML VIAL IV ONE (11:30)
[2022-07-10 11:36] LABS: CALCIUM, SERUM 8.5 mg/dL (8.5-10.1); CARBON DIOXIDE 26 mmol/L (21-32); CHLORIDE 101 mmol/L (98-107); CREATININE 2.2 mg/dL (0.6-1.3); GLUCOSE 158 mg/dL (74-106); POTASSIUM 4.1 mmol/L (3.5-5.1); SODIUM SERUM 143 mmol/L (136-145); UREA NITROGEN, BLOOD 36 mg/dL (7-18)
[2022-07-10 11:41] LABS: ALANINE AMINOTRANSFERASE 30 U/L (12-78); ALBUMIN 3.2 g/dL (3.4-5.0); ALKALINE PHOSPHATASE 79 U/L (46-116); ASPARTATE AMINOTRANSFERASE 17 U/L (15-37); BILIRUBIN,DIRECT 0.3 mg/dL (0.0-0.2); TOTAL PROTEIN, SERUM 6.9 g/dL (6.4-8.2)
--- NOTE | 2022-07-10 12:37 | NUR ---
PT STILL UNABLE TO PROVIDE URINE SAMPLE AT THIS TIME. URINAL AT BEDSIDE.
--- NOTE | 2022-07-10 12:45 | NUR ---
CALLED DR. ALVA LEFT .
[2022-07-10] MEDS ORDERED: TAMSULOSIN 0.4 MG CAP.SR.24H ONE (12:49)
[2022-07-10] MEDS ORDERED: TAMSULOSIN 0.4 MG CAP.SR.24H PO ONE (13:00)
[2022-07-10] MEDS ORDERED: COLE1TAB PO (13:30)
[2022-07-10] MEDS ORDERED: DULO30CA2 PO (13:30)
[2022-07-10] MEDS ORDERED: FINA5TAB11 PO (13:30)
--- NOTE | 2022-07-10 13:30 | NUR ---
RAPID COVID SWAB DONE AND SENT TO LAB
--- NOTE | 2022-07-10 13:30 | NUR ---
URINE SAMPLE SENT TO LAB.; PT. URINE [id number]
[2022-07-10 14:02] LABS: BILIRUBIN,URINE NEGATIVE (NEGATIVE); COLOR,URINE YELLOW (YELLOW); LEUKOCYTE ESTERASE ,URINE NEGATIVE (NEGATIVE); NITRITE, URINE NEGATIVE (NEGATIVE); PH,URINE 5.5 (5.0-8.0); PROTEIN,URINE NEGATIVE (NEGATIVE); UGLUCOSE NEGATIVE (NEGATIVE); UROBILINOGEN,URINE 0.2 EU/dL (0.2)
--- NOTE | 2022-07-10 17:46 | NUR ---
PT'S UROLOGY MD'S EXCHANGE CALLED. AWAITING DR WILFREDO LEVINE CALL BACK.
[2022-07-10] MEDS ORDERED: TRAM50TA2 PO (18:09)
--- NOTE | 2022-07-10 18:18 | NUR ---
dr Holt at bedside talking to patient about plan of care. pt insisting that he feels way better and will just make a urology appointment tomorrow. Patient does not wish to proceed with medical care recommended by Dr. Holt. Patient given information related to possible complications, up to and including , which could occur as a result of leaving the hospital at this time. Patient verbalizes understanding of risks involved due to leaving against medical advice. Patient has signed AMA form.
[2022-07-10 18:20] VITALS: BP 148/76
== END 2022-07-10 18:20 | disposition left against medical advice (07) ==
LOC: ER 10:45
DX: N17.9 Acute kidney failure, unspecified (principal); N13.2 Hydronephrosis with renal and ureteral calculous obstruction; Z20.822 Contact with and (suspected) exposure to COVID-19; Z88.2 Allergy status to sulfonamides; K50.90 Crohn's disease, unspecified, without complications
CPT/HCPCS: 99285; 74176; 96374; 96361; 87426; 85025; 80048; 87086; 80076; 81003; 36415; 87081; J7030; J1885 ×2; C9803

== ENCOUNTER → 2023-04-18 | Emergency (ER) | payer MEDICARE, OTHER ==
[~2023-04-18] VITALS: Ht 172.7 cm; Wt 65.8 kg
[~2023-04-18] MED LIST changes: -AZAT50TA18 PO; -DIAZ10TA PO; +DULO30CA2 PO; -ERTA1VIA2 IV; +ERYT3.5O9 LEFTEYE; +FINA5TAB11 PO; -INFL100V IV; -METH-647 PO; +TRAM50TA2 PO; -VANC1PLA10 IV
[2023-04-18 18:10] VITALS: BP 140/66; TEMP 98.2; O2SAT 98
== END | disposition home or self-care (01) ==
LOC: ER 17:23
DX: H00.014 Hordeolum externum left upper eyelid (principal); F41.9 Anxiety disorder, unspecified; Z88.2 Allergy status to sulfonamides

== ENCOUNTER 2023-12-13 16:54 | Emergency (ER) | payer OTHER ==
[~2023-12-13] VITALS: Ht 172.7 cm; Wt 67.1 kg
[2023-12-13] MEDS ORDERED: FAMO40TA7 PO (17:59)
[2023-12-13] MEDS ORDERED: DIPH-530 PO (17:59)
[2023-12-13] MEDS ORDERED: PRED50TA PO (17:59)
[2023-12-13 18:06] VITALS: BP 134/87; TEMP 98.5; O2SAT 100
== END 2023-12-13 18:06 | disposition home or self-care (01) ==
LOC: ER 17:00
DX: R21 Rash and other nonspecific skin eruption (principal); Z79.899 Other long term (current) drug therapy; Z88.2 Allergy status to sulfonamides